=== PATIENT | male | born 1995 | race Caucasian/White ===

== ENCOUNTER 2016-12-09 09:54 | Observation (INO) | payer BC ==
[2016-12-09] MEDS ORDERED: Ketorolac INJ* 30 MG/ML 1 ML VIAL IV ONE (10:20)
--- NOTE | 2016-12-09 10:28 | ED ---
HPI Chest Pain - HPI Summary HPI Summary: Patient presents to the ED from [facility] with CC of left anterior chest pain since last evening which he described as sharp and stabbing. Sent here by [address] [place] [id number] for abnormal EKG and further evaluation of chest pain. Pain is 8/10 and constant and does not radiate. Denies diaphoresis or known fever. Worse with sitting forward and leaning back, better with standing. Worse with breathing deep. Denies travel. Notes to URI symptoms recently, cough and sore throat. Denies PMH of cardiac history and FHx of cardiac history. He has not taken anything for the pain. Denies trauma or injury. Denies tick bites, rashes or N/ V/C/D. Denies smoking history. - History of Current Complaint Chief Complaint: EDChestPainROMI Time Seen by Provider: 12/09/16 09:59 Hx Obtained From: Patient, Family/Teacher Time of Onset: 23:00 Timing: Constant Initial Severity: Moderate Current Severity: Moderate Pain Intensity: 4 Pain Scale Used: 0-10 Numeric Chest Pain Location: Left Anterior Chest Pain Radiates: No Character: Sharp/Stabbing Aggravating Factor(s): Position Alleviating Factor(s): Upright Position Associated Signs and Symptoms: Positive: Chest Pain, Cough - Risk Factors Pulmonary Embolism Risk Factors: Negative TAD Risk Factors: Negative - Allergy/Home Medications Allergies/Adverse Reactions: Allergies Allergy/AdvReac Type Severity Reaction Status Date / Time Penicillins Allergy Unknown Verified 11/01/15 17:00 Reaction Details Home Medications: Home Medications NK [No Home Medications Reported] 12/09/16 [History Confirmed 12/09/16] PMH/Surg Hx/FS Hx/Imm Hx Previously Healthy: Yes - Immunization History Hx Pertussis Vaccination: No Immunizations Up to Date: Unable to Obtain/Confirm Infectious Disease History: No Infectious Disease History: Denies: Traveled Outside the [place] in Last 30 Days - Family History Known Family History: Positive: Cardiac Disease - no hx or cardiac disease - Social History Occupation: Employed Full-time Lives: With Family Alcohol Use: None Hx Substance Use: No Substance Use Type: Reports: None Hx Tobacco Use: No Smoking Status (MU): Never Smoked Tobacco Review of Systems Constitutional: Negative Negative: Fever, Chills, Fatigue Eyes: Negative Positive: Sore Throat Positive: Chest Pain Respiratory: Negative Gastrointestinal: Negative Negative: Abdominal Pain, Vomiting, Diarrhea Genitourinary: Negative Positive: no symptoms reported, see HPI Musculoskeletal: Negative Neurological: Negative Psychological: Normal All Other Systems Reviewed And Are Negative: Yes Physical Exam Triage Information Reviewed: Yes Vital Signs On Initial Exam: Initial Vitals Temp Pulse Resp BP Pulse Ox 99.4 F 97 18 139/93 99 12/09/16 09:56 12/09/16 09:56 12/09/16 09:56 12/09/16 09:56 12/09/16 09:56 Vital Signs Reviewed: Yes Appearance: Positive: Well-Appearing, Well-Nourished Skin: Positive: Warm, Skin Color Reflects Adequate Perfusion Head/Face: Positive: Normal Head/Face Inspection Eyes: Positive: EOMI, KATHI, Conjunctiva Clear Neck: Positive: Supple, No Lymphadenopathy Respiratory/Lung Sounds: Positive: Clear to Auscultation, Breath Sounds Present Cardiovascular: Positive: Normal, RRR, Pulses are Symmetrical in both Upper and Lower Extremities Musculoskeletal: Positive: Normal, Strength/ROM Intact Neurological: Positive: Speech Normal Psychiatric: Positive: Normal AVPU Assessment: Alert - [place] Coma Scale Coma Scale Total: 15 Diagnostics - Vital Signs Vital Signs Temp Pulse Resp BP Pulse Ox 12/09/16 10:04 92 98 12/09/16 10:02 137/92 12/09/16 09:56 99.4 F 97 18 139/93 99 - Laboratory Result Diagrams: 12/09/16 10:30 12/09/16 10:30 Lab Statement: Any lab studies that have been ordered have been reviewed, and results considered in the medical decision making process. Chest Pain Course/Dx - Course Course Of Treatment: Patient presents with chest pain which is constant, worse with leaning forward and lying down. The pain is discretely located over the left anterior chest wall, worse with breathing deep and better with rest. Strep negative. Chest xray negative for acute cardiopulmonary disease. Trop 0.09. Other labs WNL except for slightly elevated CRP. EKG suggestive of pericarditis. Myocarditis is not suspected d/t normal white blood cell count, erythrocyte sedimentation rate, and serum C-reactive protein with only a slight elevation. Acute pericarditis most likely d/t EKG changes, increases in serum biomarkers of myocardial injury such as cardiac troponin, recent URI and negative chest xray. No IV drug use per patient. 0.09 trop. Discussed with patient and parents the need for further evaluation to assess for elevation of troponin in 2 hours. Trop then elevated to 0.16. EKG taken again and no changes seen. Patient is given toradol 30mg IV in ED with effect. Dr Gooden paged and would like to admit for an echo in the morning. Parents and patient made aware and are OK with plan. Dr. Berry called who accepts patient at 3pm. - Chest Pain Differential Diagnosis/HQI/PQRI: ACS, Angina, Other: - pericarditis - Diagnoses Provider Diagnoses: Elevated troponin Discharge - Discharge Plan Condition: Good Disposition: ADMITTED TO [facility]
[2016-12-09 10:42] LABS: Hematocrit 46 % (42-52); Hemoglobin 15.7 g/dl (14.0-18.0); Mean Corpuscular HGB Conc 34 g/dl (31-36); Mean Corpuscular Hemoglobin 31 pg (27-31); Mean Corpuscular Volume 90 fL (80-94); Mean Platelet Volume 9 um3 (7.4-10.4); Red Cell Distribution Width 14 % (10.5-15); White Blood Count 9.2 10^3/ul (3.5-10.8)
--- NOTE | 2016-12-09 10:51 | RAD ---
INDICATION: Chest pain. COMPARISON: Comparison is made with a prior study from April 18, 2015. TECHNIQUE: A portable view of the chest was obtained. FINDINGS: Cardiac and mediastinal contours appear to be within normal limits. The lungs are clear. No pleural effusion or pneumothorax is seen. IMPRESSION: NO EVIDENCE FOR ACUTE DISEASE.
[2016-12-09 11:08] LABS: Albumin 4.7 g/dL (3.2-5.2); BUN/Creatinine Ratio 15.5 (8-20); Calcium 8.8 mg/dL (8.6-10.3); EGFR African American 126.9 (>60); EGFR Non-African American 98.7 (>60); Globulin 2.4 g/dL (2-4); Potassium 3.8 mmol/L (3.5-5.0); Total Bilirubin 0.8 mg/dL (0.2-1.0); Total Protein 7.1 g/dL (6.4-8.9)
[2016-12-09 11:14] LABS: Troponin I 0.09 ng/mL (<0.04)
[2016-12-09 11:20] LABS: C Reactive Protein 6.98 mg/L (< 5.00)
[2016-12-09 12:03] LABS: Erythrocyte Sed Rate 3 mm/Hr (0-14)
[2016-12-09] MEDS: Ibuprofen TAB* 600 MG PO SCH ×2 (16:37→23:08)
--- NOTE | 2016-12-09 16:38 | HP ---
CC: Dr. Silva * HISTORY AND PHYSICAL: DATE OF ADMISSION: 12/09/16 PRIMARY CARE PHYSICIAN: Dr. Silva. CHIEF COMPLAINT: Chest pain. HISTORY OF PRESENT ILLNESS: Mr. Diaz is a 21-year-old man with no past medical history, who presented to the hospital with left-sided chest pain. The patient states that the pain began acutely around 8 p.m. last night. It was not associated with any trauma. The pain has been constant on the left side of the chest, states that it is worst with leaning forward and worse with deep breathing. It is not reproducible on palpation. He did not take anything for the pain at home. He denies any recent fever or chills, but has had a sore throat and cough past few days. The cough has been occasionally productive of yellow sputum, denies any blood present. 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 Denies any rashes, abdominal pain, nausea, vomiting, shortness of breath, diarrhea, or constipation. Has been taking good p.o. intake. Denies any dysuria. In the emergency department, the patient was found to have a mildly elevated troponin of 0.09 as well as diffuse ST elevations consistent with pericarditis. Repeat troponin was 0.16. Cardiology was called and Dr. Gooden recommended observing the patient, so that he can get an echocardiogram tomorrow. At this point, hospitalist service was consulted to consider the patient for admission. PAST MEDICAL HISTORY: None. PAST SURGICAL HISTORY: None. HOME MEDICATIONS: None. ALLERGIES: The patient reports allergy to PENICILLIN, anaphylactic reaction. FAMILY HISTORY: Reviewed, the patient denies. SOCIAL HISTORY: The patient is a social smoker, states he goes out drinking every 2 weeks or so, and will usually about drink 2 to 3 drinks. Reports occasional marijuana use. No other illicit drug use. REVIEW OF SYSTEMS: A 12-point review of systems is negative except for that as noted in the HPI. PHYSICAL EXAMINATION GENERAL: The patient is a young man, lying in bed, in no apparent distress. VITAL SIGNS: On admission, temperature 99.4; heart rate of 97; respiratory rate of 18; O2 saturation 99% on room air; blood pressure 139/93, subsequently 124/77. HEENT: Head: Normocephalic, atraumatic. Eyes: Pupils are equal, round and reactive to light and accommodation. Anicteric sclerae. ENT: Moist mucous membranes. No posterior oropharyngeal erythema or edema. NECK: No cervical adenopathy. LUNGS: Clear to auscultation bilaterally. No wheezes, rales, or rhonchi. CARDIOVASCULAR: Tachycardic. I do not appreciate any pericardial rub. No murmurs or gallops. ABDOMEN: Soft, nontender, and nondistended. Bowel sounds positive. EXTREMITIES: No cyanosis, clubbing, or edema. NEURO: The patient is alert and oriented x3. No focal neurological deficits. DIAGNOSTIC STUDIES/LAB DATA: White blood cell count of 9.2, hematocrit of 46, platelets of 125. D-dimer negative. Sodium 136, potassium 3.8, chloride of 104 , carbon dioxide of 26, BUN of 15, creatinine of 0.97. LFTs are within normal limits. Lactic acid of 0.7. Initial troponin of 0.09, subsequent troponin of 0.16. CRP of 6.98. B-natriuretic peptide of 18. Group A strep rapid testing negative. Chest x-ray, personally reviewed, shows no acute disease. EKG, personally reviewed, shows diffuse ST elevations with some associated NV depressions as well. ASSESSMENT AND PLAN: Acute myopericarditis in a 21-year-old man with no significant past medical history. 1. Acute myopericarditis. This is likely post viral in etiology. We will start the patient on ibuprofen 600 mg 3 times daily along with colchicine 0.6 mg 2 times daily. We will continue to trend the patient's troponin, monitor on telemetry overnight. We will order a transthoracic echocardiogram for the morning to assess the patient's pericardium, to evaluate for an effusion, as well as to assess his left ventricular function in the presence of any wall motion abnormality. If this is unremarkable, the patient can likely be discharged in the morning. 2. Thrombocytopenia, mild. The patient's previous platelets on record here were about a year and a half ago, which were on the low side of normal, suspect he may be a bit lower due to his viral infection. 3. DVT prophylaxis. Low risk. Up ad jasper. 4. Code status. The patient is a full code. TIME SPENT: Total time spent on this admission 45 minutes with over half the time spent [id number] with the patient in counseling and coordinating care. [id number]/[facility] #: [id number] MEHREEN
[2016-12-09] MEDS: Colchicine* 0.6 MG TAB PO SCH (20:55)
[2016-12-10 06:20] VITALS: BP 106/63
[2016-12-10] MEDS: Colchicine* 0.6 MG TAB PO SCH (08:50)
[2016-12-10] MEDS: Ibuprofen TAB* 600 MG PO SCH (08:50)
--- NOTE | 2016-12-10 09:01 | ECHO ---
Patient: JOJO CALLAWAY [facility] Rec#: [id number] : 1995 Date: 12/10/2016 Age: 21y Height: 177.8 cm / 70.0 in Weight: 65.77 kg / 145.0 lbs Sex: M BSA: 1.82 Room#: 452 Admit Date#: 12/09/2016 Type: Inpatient Referring: ALEJANDRO ELIAS MD Reading: Tra Amaya MD Animal Laboratory Helper: Zaida Lassiter RDCS CC: Chau Silva MD Transthoracic Echocardiogram Indication: Myopericarditis BP: 106/63 HR: 62 Rhythm: NSR Findings History: Smoker. Technical Comments: The study quality is good. Completed at 0845. Left Ventricle: The left ventricular chamber size is normal. There is no left ventricular hypertrophy. Global left ventricular wall motion and contractility are within normal limits. Left ventricular systolic function is at the lower limits of normal. The estimated ejection fraction is 50-55%. Left Atrium: The left atrial chamber size is normal. Right Ventricle: Moderator Band present. The right ventricular cavity size is normal. The right ventricular global systolic function is normal. Right Atrium: The right atrial cavity size is normal. Aortic Valve: The aortic valve is trileaflet. There is no evidence of aortic regurgitation. There is no evidence of aortic stenosis. Mitral Valve: The mitral valve leaflets appear normal. There is a trace of mitral regurgitation. There is no evidence of mitral stenosis. Tricuspid Valve: The tricuspid valve leaflets are normal. There is trace tricuspid regurgitation. The right ventricular systolic pressure is estimated at 21 mmHg. No pulmonary hypertension is noted. There is no tricuspid stenosis. Pulmonic Valve: The pulmonic valve appears normal. There is mild pulmonic regurgitation. There is no pulmonic stenosis. Pericardium: There is no significant pericardial effusion. Aorta: There is no dilatation of the ascending aorta. There is no dilatation of the aortic arch. The aortic root is normal in size. Pulmonary Artery: The main pulmonary artery appears normal. Venous: The inferior vena cava appears normal in size. There is a greater than 50% respiratory change in the inferior vena cava dimension. Summary: There was not any prior study for comparison. Conclusions Global left ventricular wall motion and contractility are within normal limits. Left ventricular systolic function is at the lower limits of normal. The estimated ejection fraction is 50-55%. There is no evidence of aortic stenosis. There is a trace of mitral regurgitation. There is trace tricuspid regurgitation. The right ventricular systolic pressure is estimated at 21 mmHg. There is no significant pericardial effusion. Measurements Name Value Normal Range RVIDd (AP) 2D 2.6 cm (0.9 - 2.6) RVDdMajor (2D) 3.3 cm (2.2 - 4.4) RAd ISD 4CH 4.4 cm (3.4 - 4.9) RA (A4C)W 3.6 cm (2.9 - 4.6) IVSd (2D) 0.8 cm (0.6 - 1) LVPWd (2D) 0.9 cm (0.6 - 1) LVIDd (2D) 4.8 cm (3.6 - 5.4) LVIDs (2D) 3.4 cm - LV FS (2D) 31 % (25 - 45) Aortic Annulus 1.8 cm (1.4 - 2.6) Ao root diameter (2D) 2.4 cm (2.1 - 3.5) Ascending Ao 2.4 cm (2.1 - 3.4) Aortic arch 2 cm (1.8 - 3.4) LA dimension (AP) 2D 3.3 cm (2.3 - 3.8) LAd ISD 4CH 5.3 cm (2.9 - 5.3) LA ISD 4CH W 4.1 cm (2.5 - 4.5) Name Value Normal Range LA ESV SP 4CH (A/L) 52 ml - LA ESV SP 2CH (A/L) 57 ml - LA ESV BP (A/L) 56 ml - LA ESV BP (A/L) index 32.22 ml/m2 - LA ESV SP 4CH (MOD) 45 ml - LA ESV SP 2CH (MOD) 54 ml - Name Value Normal Range MV E-wave Vmax 0.58 m/sec - MV deceleration time 335.6 msec - MV A-wave Vmax 0.26 m/sec - MV E:A ratio 2.24 ratio - LV septal e' Vmax 0.13 m/sec - LV lateral e' Vmax 0.2 m/sec - LV E:e' septal ratio 4.46 ratio - LV E:e' lateral ratio 2.9 ratio - Name Value Normal Range AV Vmax 1.2 m/sec - AV VTI 24.09 cm - AV peak gradient 5.72 mmHg - AV mean gradient 3.18 mmHg - LVOT Vmax 0.85 m/sec - LVOT VTI 18.46 cm - LVOT peak gradient 2.88 mmHg - LVOT mean gradient 1.62 mmHg - THOM Vmax 1.2 m/sec - Name Value Normal Range TR Vmax 2.11 m/sec - TR peak gradient 18 mmHg - RAP 3 mmHg - RVSP 21 mmHg - IVC diameter 1.6 cm - Name Value Normal Range PV Vmax 0.88 m/sec - PV peak gradient 3.16 mmHg - W[place] end-diastolic Vmax 0.81 m/sec -
--- NOTE | 2016-12-11 08:40 | DS ---
CC: Dr. Silva * DISCHARGE SUMMARY: DATE OF ADMISSION: 12/09/16 DATE OF DISCHARGE: 12/10/16 PRIMARY CARE PROVIDER: Dr. Silva DISCHARGING PROVIDER: BHANU Faye SUPERVISING PHYSICIAN: Dr. Paulette Rodríguez * (DICTATED BY BHANU FAYE) PRIMARY DISCHARGE DIAGNOSIS: Acute pericarditis, likely post-viral in nature. SECONDARY DISCHARGE DIAGNOSIS: None. DISCHARGE MEDICATIONS: 1. Colchicine 0.6 mg p.o. twice daily x90 days. 2. Ibuprofen with instructions to take 600 mg p.o. 3 times daily x1 week, followed by 2 times daily x1 week, followed by 1 time daily x1 week, and then stop. 3. Omeprazole 20 mg p.o. daily. Medication changes: All medications are new. HOSPITAL IMAGIN. Chest x-ray shows no acute process. 2. EKG shows a sinus rhythm with diffuse ST elevations. 3. Transthoracic echocardiogram shows a normal-appearing left ventricle with EF estimated at 50% to 55% without any significant valvular abnormalities or significant pericardial effusion. HOSPITAL COURSE: This is an otherwise healthy 21-year-old gentleman, who presented to the emergency department with complaints of chest pain. The patient's pain was constant in nature and worse with deep inspiration. He reported a recent sore throat and cough, but has been afebrile. No significant shortness of breath. Labs in the emergency department showed an unremarkable CBC, D-dimer was negative at less than 200, metabolic panel was unremarkable, but his initial troponin was elevated at 0.09. His initial EKG also demonstrated diffuse ST elevations. The patient was subsequently admitted for a period of observation due to acute pericarditis. The patient was started on ibuprofen and colchicine with significant improvement in his chest pain. At the time of discharge, he had little to no discomfort. Echocardiogram was completed, which showed no significant pericardial effusion and normal-appearing left ventricle. DISPOSITION AND FOLLOWUP PLAN: The patient is being discharged to home with medications as listed above. The patient is given instructions to please follow all medication directions and repeat labs including a CRP and a sed rate in approximately 1 week with followup with his primary care provider shortly after that time. BHANU FAYE [id number]/[facility] #: [id number] MEHREEN
== END 2016-12-10 11:02 | disposition home or self-care (01) ==
LOC: ED 09:54 → MEDTELE 14:24
PROVIDERS: ADMIT Hospitalist; ATTEND Internal Medicine
DX: I30.9 Acute pericarditis, unspecified (principal); R07.89 Other chest pain; R74.8 Abnormal levels of other serum enzymes; R05 Cough; R94.31 Abnormal electrocardiogram [ECG] [EKG]; D69.6 Thrombocytopenia, unspecified
CPT/HCPCS: 36415; 71010; 80053; 82550; 82553; 83605; 83874; 83880; 84484; 85025; 85379; 85652; 85730; 86140; 87651; 93005; 93306; 96374; 99283; A9270-GY; G0378; J1885